=== PATIENT | male | born 1960 | race Caucasian/White ===

== ENCOUNTER → 2017-09-22 | Outpatient (CLI) | payer BC ==
--- NOTE | 2017-09-29 13:10 | P.ARTDOP ---
Arterial Doppler LOWER EXTREMITY ARTERIAL DOPPLER: DATE OF SERVICE: 09/22/2017 Reason for study: Suspected PVD. Doppler waveforms: Multiphasic bilaterally throughout. Pulse volume recording: Normal configuration. Pressure gradients: None. Ankle-brachial indices: Greater than 1 bilaterally Toe preasures 109 on the right 148 the left Impression: normal study .
== END | disposition home or self-care (01) ==
LOC: RADUSWWP 07:17
PROVIDERS: ATTEND Family Medicine
DX: I73.9 Peripheral vascular disease, unspecified (principal)
CPT/HCPCS: 93923

== ENCOUNTER → 2018-09-23 | Outpatient (CLI) | payer BC ==
--- NOTE | 2018-09-23 12:14 | ECHOF ---
Referral Reason:R07.89 Atypical Chest Pain MEASUREMENTS -------- HEIGHT: 182.9 cm WEIGHT: 68.0 kg BP: RVIDd: 3.0 cm (< 3.3) IVSd: 0.9 cm (0.6 - 1.1) LVIDd: 3.7 cm (3.9 - 5.3) LVPWd: 1.1 cm (0.6 - 1.1) IVSs: 1.2 cm LVIDs: 3.0 cm LVPWs: 1.4 cm LA Diam: 2.6 cm (2.7 - 3.8) LAESV Index (A-L): 25.73 ml/m Ao Diam: 3.2 cm (2.0 - 3.7) AV Cusp: 2.0 cm (1.5 - 2.6) LA Diam: 3.9 cm (2.7 - 3.8) MV EXCURSION: 23.601 mm (> 18.000) MV EF SLOPE: 102 mm/s (70 - 150) EPSS: 0.3 cm MV E Sarbjit: 0.65 m/s MV DecT: 231 ms MV A Sarbjit: 0.64 m/s MV E/A Ratio: 1.02 RAP: 5.00 mmHg RVSP: 19.30 mmHg FINDINGS -------- Sinus rhythm. This was a technically good study. LV size, wall thickness and systolic function are normal, with an EF greater than 55%. The left juarez tricular size is normal. The right ventricle is normal in size. Normal LA size by volume 22+/-6 ml/m2. The right atrial size is normal. The aortic valve is trileaflet, and appears structurally normal. No aortic stenosis or regurgitation. The mitral valve is normal. Mild mitral regurgitation is present. Mild tricuspid regurgitation present. There is no evidence of pulmonary hypertension. The right v entricular systolic pressure, as measured by Doppler, is 19.30mmHg. There is no pulmonic regurgitation present. The aortic root size is normal. There is no pericardial effusion. CONCLUSIONS -------- 1. Sinus rhythm. 2. This was a technically good study. 3. LV size, wall thickness and systolic function are normal, with an EF greater than 55%. 4. The left ventricular size is normal. 5. Normal LA size by volume 22+/-6 ml/m2. 6. The aortic valve is trileaflet, and appears structurally normal. No aortic stenosis or regurgitati on. 7. Mild mitral regurgitation is present. 8. Mild tricuspid regurgitation present. 9. There is no evidence of pulmonary hypertension. 10. There is no pulmonic regurgitation present. 11. The aortic root size is normal. 12. There is no pericardial effusion. PATIENT APPOINTMENT COORDINATOR: Caterina Fam RDCS
--- NOTE | 2018-09-23 12:33 | EST ---
EXERCISE STRESS AGE: 58 SEX: M HT: 6' WT: 150 PROTOCOL: Russ Stress Test STAGE: II DURATION OF EXERCISE: 11:36 HEART RATE REST: 55 BLOOD PRESSURE REST: 147/88 MAXIMUM HEART RATE ACHIEVED: 139 MAXIMUM BLOOD PRESSURE: 195/74 85% MPHR: 138 100% MPHR: 162 METS: 11.9 INDICATIONS: Chest pain. CLINICAL INFORMATION: Baseline rhythm is sinus mechanism, rate of 55, normal axis and intervals. Voltage criteria for left ventricle hypertrophy baseline blood pressure 147/88 mmHg. Patient exercised on Russ protocol for 11 minutes 36 seconds reaching a peak heart rate of 139 beats per minute which is equal to 86% maximum predicted heart rate. Peak blood pressure 195/74 mmHg. Test was terminated due to fatigue. There was no chest pain. Electrocardiograph monitoring revealed no evidence of diagnostic ischemic ST deviation. CONCLUSION: 1. Good exercise tolerance with no evidence of chest discomfort. 2. Normal electrocardiograph response to exercise with no evidence of exercise induced ischemia. MMODL / IJN: [id number] /
== END | disposition home or self-care (01) ==
LOC: RADNMMAIN 08:47
PROVIDERS: ATTEND Family Medicine
DX: I08.1 Rheumatic disorders of both mitral and tricuspid valves (principal); R07.89 Other chest pain
CPT/HCPCS: 93017; 93306

== ENCOUNTER → 2018-12-30 | Day surgery (SDC) | payer BC ==
[2018-12-26 16:25] VITALS: BMI 19.6
[~2018-12-30] MED LIST: LACTATED RINGERS 1,000 ML IV SCH; LIDOCAINE 1% INJ 10MG/ML (20 ML MDV) ONE; PROPOFOL 10 MG/ML 20 ML VIAL IV ONE
[2018-12-30 11:27] VITALS: RESP 16; TEMP 97.6
--- NOTE | 2018-12-30 12:16 | P.GSHP ---
History of Present Illness H&P Date: 12/30/18 Chief Complaint: Rectal bleeding 58-year-old male underwent recent cologuard testing. Patient was found have a positive cologuard. Denies apolonia blood. No constipation or diarrhea. Last colonoscopy 6 years ago. Family history of colon cancer in his father and grandmother. Past Medical History Past Medical History: Hypertension Additional Past Medical History / Comment(s): COLOGARD POS. History of Any Multi-Drug Resistant Organisms: None Reported Additional Past Surgical History / Comment(s): COLONOSCOPIES Additional Past Anesthesia/Blood Transfusion Reaction / Comment(s): TOOK LONGER TO AWAKEN Smoking Status: Former smoker - Past Family History Father Sister(s) Family Medical History: Cancer Additional Family Medical History / Comment(s): FATHER - COLON CA Mother Family Medical History: Cancer Additional Family Medical History / Comment(s): BILE DUCT CA Medications and Allergies Home Medications Medication Instructions Recorded Confirmed Type Enalapril Maleate [Vasotec] 10 mg PO DAILY 12/26/18 12/30/18 History Glucosam/Lasha-Msm1/C/Eric/Bosw 1 each PO DAILY 12/26/18 12/30/18 History [Glucosamine-Chondroitin Tablet] Magnesium (Unknown Dose) 1 tab PO DAILY 12/26/18 12/30/18 History Msm (Unknown Dose) 1 tab PO DAILY 12/26/18 12/30/18 History Multivit-Min/FA/Lycopen/Lutein 1 each PO DAILY 12/26/18 12/30/18 History [Centrum Silver Men Tablet] Naproxen Sodium [Aleve] 220 mg PO BID PRN 12/26/18 12/26/18 History Vitamin D3 (Unknown Dose) 1 tab PO DAILY 12/26/18 12/30/18 History Allergies Allergy/AdvReac Type Severity Reaction Status Date / Time No Known Allergies Allergy Verified 12/30/18 11:21 Surgical - Exam Vital Signs Temp Pulse Resp BP Pulse Ox 97.6 F 53 L 16 147/76 100 12/30/18 11:25 12/30/18 11:25 12/30/18 11:25 12/30/18 11:25 12/30/18 11:25 Physical exam: General: Well-developed, well-nourished HEENT: Normocephalic, sclerae nonicteric Abdomen: Nontender, nondistended Extremities: No edema Neuro: Alert and oriented Assessment and Plan (1) Colon cancer screening Narrative/Plan: Will proceed with colonoscopy at this time for Current Visit: Yes Status: Acute Code(s): Z12.11 - ENCOUNTER FOR SCREENING FOR MALIGNANT NEOPLASM OF COLON SNOMED Code(s): 675283544
--- NOTE | 2018-12-30 12:39 | P.PCN ---
Date of Procedure: 12/30/18 Procedure(s) Performed: PREOPERATIVE DIAGNOSIS: Blood in stool POSTOPERATIVE DIAGNOSIS: Small rectal polyp PROCEDURE: Colonoscopy with biopsy ANESTHESIA: MAC SURGEON: Jagdish Hernandez M.D. SPECIMENS: Small rectal polyp ENDOSCOPIC PROCEDURE: The patient was placed on the endoscopy table in the left decubitus position. The Olympus colonoscope was inserted into the anus and passed under direct visualization to the base of the cecum. The appendiceal orifice was visualized. From that point the scope was slowly withdrawn inspecting all surfaces carefully. There were no neoplastic inflammatory or polypoid lesions throughout the cecum, ascending, transverse, descending, and sigmoid colon. In the rectum there was noted to be a small polyp. This was removed using the cold biopsy forceps. Remainder of the rectum appeared normal. sigmoid and rectum. There was no visible diverticulosis noted. Digital rectal examination was normal. The patient was taken to the recovery room in stable condition per anesthesia guidelines. RECOMMENDATIONS: Await biopsy results. Recommend f/u colonoscopy in 5 yrs.
[2018-12-30 12:54] VITALS: BP 147/87; PULSE 51
== END | disposition home or self-care (01) ==
LOC: ORWHC2ENDO 10:57
PROVIDERS: ATTEND Surgery
DX: D12.8 Benign neoplasm of rectum (principal); K92.1 Melena; I10 Essential (primary) hypertension; Z87.891 Personal history of nicotine dependence; Z80.0 Family history of malignant neoplasm of digestive organs; Z79.899 Other long term (current) drug therapy
CPT/HCPCS: 88305; 45380; J2001; J2704

== ENCOUNTER → 2021-01-10 | Outpatient (CLI) | payer BC ==
--- NOTE | 2021-01-28 11:10 | EM ---
Event monitor shows Sinus rhythm Sinus tachycardia Lowest heart rates of 49 beats a minute Occasional premature beats No significant sustained or nonsustained tachycardia or bradycardia arrhythmias MTDD
== END | disposition home or self-care (01) ==
LOC: RADECHMAIN 11:57
PROVIDERS: ATTEND Family Medicine
DX: R00.0 Tachycardia, unspecified (principal)
CPT/HCPCS: 93270